=== PATIENT | female | born 1950 | race Caucasian/White ===

== ENCOUNTER → 2021-08-12 | Day surgery (SDC) | payer MEDICARE ==
[~2021-08-12] VITALS: Ht 162.6 cm; Wt 61.2 kg
[~2021-08-12] MED LIST: BACLOFEN 10MG T10 MG PO; CHLORTHALIDONE PO; COZAAR100 MG PO; CYMBALTA 30MG C30 MG PO; FOLIC ACID1 MG PO; FOSAMAX70 MG PO; HYDROCODON-ACE1 EAC2 PO; PRAVASTATIN SOD40 MG PO; TENORMIN50 MG PO; ZOFRAN4 M1 PO
--- NOTE | 2021-08-12 12:41 | NUR ---
1230: CHEPE, RT AT BEDSIDE. TRANSPORTED PT TO RADIOLOGY VIA W/C TO RADIOLOGY FOR BARIUM STUDY.
--- NOTE | 2021-08-12 13:33 | NUR ---
1330: DR. CAREY AT BEDSIDE DISCUSSING BARIUM STUDY RESULTS WITH PT AND SPOUSE. STATES OK FOR D/C. LEMON RAMONA SODA PROVIDED PO.
== END | disposition home or self-care (01) ==
LOC: FAS 07:43
DX: K29.51 Unspecified chronic gastritis with bleeding (principal); K44.9 Diaphragmatic hernia without obstruction or gangrene; K57.31 Diverticulosis of large intestine without perforation or abscess with bleeding; K56.699 Other intestinal obstruction unspecified as to partial versus complete obstruction; K64.8 Other hemorrhoids; K64.4 Residual hemorrhoidal skin tags; K21.00 Gastro-esophageal reflux disease with esophagitis, without bleeding; K22.10 Ulcer of esophagus without bleeding; K31.9 Disease of stomach and duodenum, unspecified; D50.9 Iron deficiency anemia, unspecified; R63.4 Abnormal weight loss; I10 Essential (primary) hypertension; E78.5 Hyperlipidemia, unspecified; K58.9 Irritable bowel syndrome, unspecified; M19.90 Unspecified osteoarthritis, unspecified site; G89.29 Other chronic pain; M54.50 Low back pain, unspecified; E78.00 Pure hypercholesterolemia, unspecified; Z98.51 Tubal ligation status; Z68.22 Body mass index [BMI] 22.0-22.9, adult; Z80.0 Family history of malignant neoplasm of digestive organs; Z79.891 Long term (current) use of opiate analgesic; Z79.899 Other long term (current) drug therapy
CPT/HCPCS: 74270; J1610; J2704; J7120